=== PATIENT | male | born 1990 | race Caucasian/White ===

== ENCOUNTER 2022-03-12 11:28 | Emergency (ER) | payer SELFPAY ==
[~2022-03-12] VITALS: Ht 170.2 cm; Wt 72.7 kg
[~2022-03-12 11:28] MED LIST: BACTRIM DS 8001 TAB PO; METHOCARBAMOL500 MG PO; NO HOME MEDICATIONS; NORCO 325 MG-7.1 TAB PO; PERCOCET 325 MG1 TA2 PO; PHENERGAN W/CO120 ML PO; ZITHROMAX Z PA250 MG PO
[2022-03-12 11:46] VITALS: BP 126/80; TEMP 98.7
[2022-03-12] MEDS ORDERED: AMOXICILLIN 8751 TAB PO (12:24)
[2022-03-12] MEDS ORDERED: NORCO 325 MG-51 TAB PO (12:24)
[2022-03-12 12:35] VITALS: PULSE 80
== END 2022-03-12 12:35 | disposition home or self-care (01) ==
LOC: COL.ER 11:28
DX: K04.7 Periapical abscess without sinus (principal); K03.81 Cracked tooth; F17.200 Nicotine dependence, unspecified, uncomplicated

== ENCOUNTER 2022-05-02 19:15 | Emergency (ER) | payer SELFPAY ==
[~2022-05-02] VITALS: Ht 172.7 cm; Wt 77.3 kg
[~2022-05-02 19:15] MED LIST changes: +AMOXICILLIN 8751 TAB PO; +NORCO 325 MG-51 TAB PO
[2022-05-02 19:21] VITALS: TEMP 97.4
[2022-05-02] MEDS ORDERED: FLEXERIL 1010 MG/TAB PO (21:45)
[2022-05-02 22:14] VITALS: BP 136/77; PULSE 70
== END 2022-05-02 22:16 | disposition home or self-care (01) ==
LOC: COL.ER 19:15
DX: M25.511 Pain in right shoulder (principal); F17.200 Nicotine dependence, unspecified, uncomplicated; X50.0XXA Overexertion from strenuous movement or load, initial encounter; Y92.59 Other trade areas as the place of occurrence of the external cause; Y99.0 Civilian activity done for income or pay